=== PATIENT | female | born 1990 | race Caucasian/White ===

== ENCOUNTER 2017-06-18 21:53 | Inpatient (IN) | payer BC, OTHER ==
[~2017-06-18] VITALS: Ht 157.5 cm; Wt 63.5 kg
[2017-06-19] VITALS (8 sets, daily range): BP systolic 88–118; BP diastolic 45–81
--- NOTE | 2017-06-19 01:30 | NUR ---
Pre-Admission Assessment Patient is a 27 year old female seen in intake. She is alert and oriented x4. Patient is noted to be unkempt, dirty finger nails, and multiple scattered abscesses to both right and left forearms. She is also noted with increased anxiety, restless, and hyperverbal. Discussed with patient admission policies of the unit and patient is able to verbalize understanding. Patient is coherent and able to respond to questions appropriately. Patient reported that she is arriving from [place] where she was living with a friend but also states Im not allowed to go back there until Im 90 days clean. Patient is ambulatory with steady gait. Vital signs taken and noted as follows: 118/81, 92, 99%, 18, 98.0, 0/10. Home medications policies reviewed with patient and she is able to verbalize understanding in regards to narcotic medication disposal. Patient was noted with an excessive amount of needles. All needles were disposed off in sharps container. All needs attended to promptly. Will continue admission assessment on unit.
[2017-06-19] MEDS ORDERED: DICYCLOMINE HCL 20 MG TABLET PO PRN (02:30)
[2017-06-19] MEDS ORDERED: LORAZEPAM 2 MG/1 ML VIAL IM PRN (02:30)
[2017-06-19] MEDS ORDERED: BUPRENORPHINE HCL 2 MG TAB.SUBL SL PRN (02:30)
[2017-06-19] MEDS ORDERED: MAGNESIUM HYDROXIDE 30 ML LIQUID UDC PO PRN (02:30)
[2017-06-19] MEDS ORDERED: ONDANSETRON 4 MG/2 ML VIAL IM PRN (02:30)
[2017-06-19] MEDS ORDERED: MAG HYDROX/AL HYDROX/SIMETH 30 ML LIQUID UDC PO PRN (02:30)
[2017-06-19] MEDS ORDERED: diphenhydrAMINE 50 MG CAPSULE PO PRN (02:30)
[2017-06-19] MEDS ORDERED: PROMETHAZINE HCL 25 MG TABLET PO PRN (02:30)
[2017-06-19] MEDS ORDERED: CLONIDINE HCL 0.1 MG TABLET PO PRN (02:30)
[2017-06-19] MEDS ORDERED: ACETAMINOPHEN 325 MG TABLET PO PRN (02:30)
[2017-06-19] MEDS ORDERED: MIRALAX 17 GM POWD.PACK PO PRN (02:30)
[2017-06-19] MEDS ORDERED: IBUPROFEN 600 MG TABLET PO PRN (02:30)
[2017-06-19] MEDS ORDERED: LOPERAMIDE HCL 2 MG CAPSULE PO PRN ×2 (02:30)
[2017-06-19] MEDS ORDERED: HYDROXYZINE PAMOATE 25 MG CAPSULE PO PRN (02:30)
[2017-06-19] MEDS ORDERED: TRAZ-144 PO (02:40)
[2017-06-19] MEDS ORDERED: SERT50TA PO (02:40)
[2017-06-19 02:43] LABS: *URINE HCG, QUAL NEGATIVE (NEGATIVE)
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
[2017-06-19 02:53] LABS: *AMPHETAMINE, URINE NEGATIVE (NEGATIVE); *BARBITURATE, URINE NEGATIVE (NEGATIVE); *CANNABINOID, URINE NEGATIVE (NEGATIVE); *COCCAINE, URINE NEGATIVE (NEGATIVE); *OPIATE, URINE POSITIVE (NEGATIVE); *PHENCYCLIDINE SCREEN,URINE NEGATIVE (NEGATIVE)
[2017-06-19] MEDS: LORAZEPAM 1 MG TABLET PO PRN ×2 (03:26→18:39)
--- NOTE | 2017-06-19 03:30 | NUR ---
PRN Medication Administration Patient is noted with increased anxiety, restlessness, irritability, tremulous, and verbalizing light sensitivity. CIWA noted to be 16. PRN Ativan 2mg administered. Will continue to monitor.
--- NOTE | 2017-06-19 04:30 | NUR ---
PRN Medication Reassessment Patient is noted in bed awake and watching TV. patient states "the medication helped me to relax." CIWA noted to be 7. PRN Ativan noted to be effective. Will continue to monitor.
--- NOTE | 2017-06-19 07:04 | NUR ---
End of Shift Patient is in bed sleeping. Breathing even and non labored. Patient is currently not on a taper but has placed on PRN medications for increased signs and symptoms of withdrawal. She received PRN Ativan 2mg for increased anxiety, irritability, restlessness, tremulous and verbalizing increased light sensitivity. PRN Ativan noted to be effective. Last noted CIWA 7 and COWS 6. Patient noted to sleep a total of 2 hours. All needs attended to promptly. Will endorse to continue plan of care as ordered.
[2017-06-19] MEDS ORDERED: FOLIC ACID 1 MG TABLET PO SCH (09:00)
[2017-06-19] MEDS ORDERED: MULTIVITAMINS,THERAPEUTIC TABLET PO SCH (09:00)
--- NOTE | 2017-06-19 09:00 | NUR ---
START OF SHIFT Received report from night warehouse selector nurse. Patient is 27 year old female admitted for medically supervised withdrawal from heroin and valium. Patient is full code with NKA. Per night warehouse selector report, PRN Ativan was given for CIWA 16, last CIWA: 7 and COWS: 6. On assessment this AM: CIWA 5 and COWS 3. Denies SOB, chest pain. Patients vitals signs WNL. Patient noted with anxiety, tremors, body aches and sweating. Compliant with AM meds. No PRN given. All needs met at this time. Call lights within reach and bed at low setting. Will continue to monitor patient.
[2017-06-19] MEDS ORDERED: NICOTINE 14 MG/24HR PATCH TD PRN (11:00)
[2017-06-19] MEDS ORDERED: NICOTINE POLACRILEX 4 MG GUM-PK OF TEN BC PRN (11:00)
--- NOTE | 2017-06-19 11:00 | NUR ---
Labs not done this MD RAJAT notified. Patient agreeable to have another photographic laboratory technician try again. Patient has abscess on bilateral forearms, swelling and mild redness noted on both arms, dark discoloration noted on R forearm abscess, photos in chart, wound consult placed by charge nurse.
[2017-06-19 11:47] LABS: BASOPHILS % (AUTO) 0.7 % (0.0-2.0); EOSINOPHILS # (AUTO) 0.2 K/uL (0.0-0.7); EOSINOPHILS % (AUTO) 4.8 % (0.0-7.0); HEMOGLOBIN 14.2 g/dL (10.9-14.3); LYMPHOCYTES # (AUTO) 1.9 K/uL (20.0-40.0); LYMPHOCYTES % (AUTO) 43.4 % (20.5-51.5); MEAN CORPUSCULAR HEMOGLOBIN 27.4 uug (24.7-32.8); MEAN CORPUSCULAR HGB CONC 34 g/dL (32.3-35.6); MEAN CORPUSCULAR VOLUME 80.7 fL (75.5-95.3); MONOCYTES # (AUTO) 0.4 K/uL (2.0-10.0); MONOCYTES % (AUTO) 9.6 % (0.0-11.0); NEUTROPHILS # (AUTO) 1.8 K/uL (1.8-8.9); NEUTROPHILS % (AUTO) 41.5 % (38.5-71.5); PLATELET COUNT (AUTO) 186 K/uL (179-408); WHITE BLOOD COUNT (AUTO) 4.3 K/uL (3.8-11.8)
[2017-06-19 11:58] LABS: ETHANOL < 3 MG/DL (0-0)
[2017-06-19 12:02] LABS: ALANINE AMINOTRANSFERASE 64 U/L (14-59); ALKALINE PHOSPHATASE 100 U/L (50-136); AMYLASE 60 U/L (25-115); ASPARTATE AMINOTRANSFERASE 39 U/L (15-37); BILIRUBIN,TOTAL 0.8 mg/dL (0.2-1.0); CARBON DIOXIDE 30 mmol/L (21-32); CHLORIDE 99 mmol/L (98-107); CREATININE 0.9 mg/dL (0.6-1.3); GLUCOSE 99 mg/dL (74-106); LIPASE 290 U/L (73-393); MAGNESIUM 1.8 mg/dL (1.8-2.4); TOTAL PROTEIN, SERUM 8.1 g/dL (6.4-8.2); UREA NITROGEN, BLOOD 12 mg/dL (7-18)
[2017-06-19] MEDS: BUPRENORPHINE HCL 2 MG TAB.SUBL SL SCH ×2 (15:42→20:18)
[2017-06-19] MEDS: NEOMY/BACITRAC/POLYMI OINT 28.35 GM TUBE TOP SCH (17:56)
--- NOTE | 2017-06-19 18:39 | NUR ---
PRN ATIVAN Patient's CIWA is 9, complains of increaisng anxiety and agitation, body aches, tremors, nausea, sweating. PRN Ativan 1mg po given. Will continue to monitor patient.
--- NOTE | 2017-06-19 19:00 | NUR ---
307- Start of Shift Patient Received. Patient is noted in bed sleeping. Breathing even and non labored. Patient was started on a modified 5 day Subutex taper. Patient was noted to be isolative to room due to withdrawal symptoms. PRN Ativan 1mg administered for elevated CIWA of 9 with endorsement to reassess PRN Ativan. Patient is set to start Doxycycline 100mg with 2100 medications. New order obtained for Wound Consult for bilateral upper extremities. Last noted CIWA 9 and COWS 10. All needs attended to promptly. Will continue to monitor.
--- NOTE | 2017-06-19 19:17 | NUR ---
END OF SHIFT Patient is 27 year old female admitted for medically supervised withdrawal from heroin and valium. Started Subutex taper this shift. Most recent COWS: 10 and CIWA: 9, reports anxiety, body aches, chills, stuffy nose, tremors. PRN Ativan given for CIWA 9. Patient has bilateral forearm abscess, wound consult placed by charge nurse, antibiotic ointment applied as ordered. Compliant with routine meds during this shift. Patient tolerating meals. supervisor dry pasterestaurant shift leader will continue to monitor patient.
[2017-06-19] MEDS: DOXYCYCLINE HYCLATE 100 MG TABLET PO SCH (20:18)
[2017-06-19] MEDS: TRAZODONE 50 MG TABLET PO SCH (20:18)
[2017-06-19] MEDS: METHOCARBAMOL 750 MG TABLET PO PRN (20:18)
--- NOTE | 2017-06-19 20:20 | NUR ---
PRN Medication Administration Patient is noted verbalizing increased body aches with facial grimacing noted. PRN Robaxin administered with routine medications. Will continue to monitor.
--- NOTE | 2017-06-19 21:20 | NUR ---
PRN Medication Reassessment Patient is noted in bed sleeping. Breathing even and non labored. No signs of restlessness or discomfort noted. PRN Robaxin noted to be effective. Will continue to monitor.
[2017-06-20] VITALS: BP 98/58
[2017-06-20 04:00] VITALS: BP 104/74
[2017-06-20] MEDS: LORAZEPAM 1 MG TABLET PO PRN ×2 (04:02→07:46)
[2017-06-20] MEDS: METHOCARBAMOL 750 MG TABLET PO PRN ×2 (04:18→13:27)
--- NOTE | 2017-06-20 04:20 | NUR ---
PRN Medication Administration Patient is noted awake and verbalizing increased anxiety, restlessness, increased body aches, and chills. . PRN Ativan 1mg and PRN Robaxin administered. Will continue to monitor.
--- NOTE | 2017-06-20 05:20 | NUR ---
PRN Medication Reassessment Patient is noted in bed sleeping. Breathing even and non labored. No signs of restlessness or discomfort noted. PRN Ativan 1mg and PRN Robaxin noted to be effective. Will continue to monitor.
--- NOTE | 2017-06-20 07:12 | NUR ---
End of Shift Patient is in bed sleeping. Breathing even and non labored. Patient continues on a modified 5 day Subutex taper. She is noted to be isolative to room due to a withdrawal symptoms. Patient received PRN Robaxin x2 and PRN Ativan 1mg with medications noted to be effective. Fluids and snacks encouraged and tolerated well. Last noted COWS 14 and CIWA 9. Patient noted to sleep a total of 11 hours. All needs attended to promptly. Will endorse to continue plan of care as ordered.
[2017-06-20] MEDS: ONDANSETRON ODT 4 MG TAB.RAPDIS SL PRN (07:44)
--- NOTE | 2017-06-20 07:50 | NUR ---
START OF SHIFT: RECEIVED PT A/O X 4. SHE IS FIDGETY AND PACING IN ROOM. HER EYES ARE WATERING AND PUPILS DILATED. SHE STATES SHE STATES"I FEEL LIKE IM DYING" ASKED PT TO BE MORE DESCRIPTIVE. SHE REPORTS NAUSEA, SEVERE ANXIETY AND AGITATION, RUNNY NOSE, BODY ACHES,SWEATS,CHILLS AND IRRITABILITY. PRN ZOFRAN ODT ADMINISTERED AND ATIVAN 2 MG PO PRN FOR CIWA 16. COWS 16. WILL ADMINISTER SCHEDULED SUBUTEX DURING AM MED PASS. WILL CONTINUE TO MONITOR AND MANAGE S/S OF W/D.
[2017-06-20 08:00] VITALS: BP 90/60
--- NOTE | 2017-06-20 08:20 | NUR ---
ATIVAN PRN EFFECTIVE CIWA IS NOW 5 AND PT STATES SHE IS READY FOR SLEEP.
[2017-06-20] MEDS ORDERED: TUBERCULIN,PURIF.PROT.DERIV. 5 TU/0.1 ML TEST ID ONE (09:00)
[2017-06-20] MEDS: DOXYCYCLINE HYCLATE 100 MG TABLET PO SCH ×2 (09:27→21:23)
[2017-06-20] MEDS: BUPRENORPHINE HCL 2 MG TAB.SUBL SL SCH ×3 (09:28→21:23)
[2017-06-20] MEDS: NEOMY/BACITRAC/POLYMI OINT 28.35 GM TUBE TOP SCH ×2 (09:30→16:11)
[2017-06-20 12:00] VITALS: BP 105/65
[2017-06-20] MEDS ORDERED: KETOROLAC TROMETHAMINE 30 MG INJ IM PRN (13:15)
[2017-06-20 13:16] LABS: HEPATITIS B SURFACE AG Negative (Negative)
[2017-06-20] MEDS: CLONIDINE HCL 0.1 MG TABLET PO SCH (13:28)
--- NOTE | 2017-06-20 13:35 | NUR ---
PRN MOTRIN,CLONIDINE AND ROBAXIN GIVEN FOR REPORTED MUSCLE ACHES,CHILLS AND SWEATS. WILL MONITOR EFFECTIVENESS OF PRN MEDS.
--- NOTE | 2017-06-20 14:35 | NUR ---
PRN MEDS EFFECTIVE AEB PT IS ASLEEP WITH RESPIRATIONS EVEN AND UNLABORED. BED LOCKED AND LOW. CALL ARIZA IN REACH. WILL CONTINUE TO MONITOR AND PROVIDE SAFE AND SUPPORTIVE ENVIRONMENT.
[2017-06-20 16:00] VITALS: BP_SYST 130; BP_SYST 99; BP_DIAS 60; BP_DIAS 76
--- NOTE | 2017-06-20 18:46 | NUR ---
END OF SHIFT: PT CONTINUES ON SUBUTEX TAPER TO MANAGE S/S OF W/D WHICH INCLUDE SWEATS,CHILLS,ANXIETY,BODY ACHES, RESTLESSNESS AND IRRITABILITY. LAST COWS 10 CIWA 7. PRN ATIVAN 2 MG PO PRN GIVEN THIS AM FOR CIWA 16 AND EFFECTIVE. PRN CLONIDINE ,MOTRIN AND ROBAXIN GIVEN THIS AFTERNOON FOR BODY ACHES,SWEATS AND CHILLS WHICH WAS EFFECTIVE. SHE STAYED IN BED AND RESTED FOR MOST OF SHIFT. PPD REFUSED. SHE WAS COMPLIANT WITH INCREASED FLUIDS. [facility].
--- NOTE | 2017-06-20 19:00 | NUR ---
Start of Shift Patient Received. Patient is in bed sleeping but easily aroused to verbal stimuli. Breathing even and non labored. Per endorsement, patient continues on modified Subutex taper with PRN Ativan available. Patient is noted to be emotional and isolative to room due to withdrawal symptoms. PRN Ativan 2mg, Robaxin, Motrin, and Clonidine given and all noted to be effective. Last noted COWS 10 and CIWA 7. All needs attended to promptly. Will continue plan of care as ordered.
[2017-06-20 20:20] VITALS: BP 101/62
[2017-06-20] MEDS: GABAPENTIN 300 MG CAPSULE PO SCH (21:23)
[2017-06-20] MEDS: BACLOFEN 10 MG TABLET PO SCH (21:23)
[2017-06-20] MEDS: TRAZODONE 50 MG TABLET PO SCH (21:23)
[2017-06-21 00:11] VITALS: BP 99/53
[2017-06-21 04:47] VITALS: BP 97/56
--- NOTE | 2017-06-21 07:06 | NUR ---
End of Shift Patient is in bed sleeping. Breathing even and non labored. Patient continues on a modified Subutex taper. Patient was noted to be emotional but allowed patient to verbalize feelings and offered support. She was noted to participate in group and social activities prior to bed. No PRN medications administered. Last noted CIWA 10 and COWS 9. Patient is noted to sleep a total of 7 hours. All needs attended to promptly. Will endorse to continue plan of care as ordered.
--- NOTE | 2017-06-21 07:24 | NUR ---
Start of Shift Notes: Received patient in her room. Arousable. Appears drowsy upon waking. Alert and oriented x 4. No AV hallucinations noted. Denies S/I or H/I. Patient appears disheveled. Room is unkept. Messy with dirty linen on the floor. Patient is a 27 year old female admitted for opiate and BZO withdrawal. Placed on a 5-day Subutex and PRN Ativan to manage her withdrawal symptoms. Educated patient on her current plan of care for the day and her medication regimen. Encouraged oral fluid intake and encouraged group participation to learn new skills to prevent relapse. Encouraged maintenance of personal hygiene and space. All needs met and attended. Will continue to monitor.
[2017-06-21 08:00] VITALS: BP 112/87
[2017-06-21] MEDS ORDERED: BUPRENORPHINE HCL 2 MG TAB.SUBL SL SCH (09:00)
[2017-06-21] MEDS: LORAZEPAM 1 MG TABLET PO PRN (09:11)
[2017-06-21] MEDS: CLONIDINE HCL 0.1 MG TABLET PO SCH ×3 (09:11→21:00)
[2017-06-21] MEDS: BACLOFEN 10 MG TABLET PO SCH ×3 (09:11→21:30)
[2017-06-21] MEDS: GABAPENTIN 300 MG CAPSULE PO SCH ×3 (09:11→21:29)
[2017-06-21] MEDS: DOXYCYCLINE HYCLATE 100 MG TABLET PO SCH ×2 (09:11→21:30)
--- NOTE | 2017-06-21 09:11 | NUR ---
Ativan 1 mg PO given: CIWA 9, appears anxious, agitated, tearful and stated "I'm having a lot of anxiety and cravings." Non-pharmacological interventions provided but ineffective. Medicated patient with Ativan 1 mg PO per CIWA score of 9. Will monitor for effectiveness.
--- NOTE | 2017-06-21 09:11 | NUR ---
Toradol 30 mg IM given: Patient complained of 8/10 generalized pain. Non-pharmacological interventions provided but ineffective. Medicated patient with Toradol 30 mg IM as ordered. Will monitor for effectiveness.
[2017-06-21] MEDS: NEOMY/BACITRAC/POLYMI OINT 28.35 GM TUBE TOP SCH ×2 (09:12→17:00)
--- NOTE | 2017-06-21 09:41 | NUR ---
Re-assessment: Toradol Per patient, PRN Toradol was effective in reducing myalgia. PL is now 04/19.
--- NOTE | 2017-06-21 10:11 | NUR ---
Re-assessment: Ativan CIWA 4, patient appears less anxious and less agitated. Ativan 1 mg PO was effective.
[2017-06-21 12:00] VITALS: BP 92/47
[2017-06-21] MEDS: BUPRENORPHINE HCL 2 MG TAB.SUBL SL SCH ×2 (14:05→21:29)
[2017-06-21 16:00] VITALS: BP 97/63
--- NOTE | 2017-06-21 17:49 | NUR ---
Triple ATB ointment not administered: Patient refused triple ATB ointment due at this time. Patient states that she does not need it at this time. Benefits and risk explained. Offered x3 but patient still refused. Will continue to monitor.
--- NOTE | 2017-06-21 19:08 | NUR ---
End of Shift Notes: Patient continues to be on 5-day Subutex and PRN Ativan as ordered to manage withdrawal related to opiates and BZOs. Patient is tolerating current taper well. VS monitored closely. No significant abnormalities noted. Withdrawal symptoms were closely monitored. Initial COWS 15, CIWA 9. Patient presented with anxiety/agitation, chills, hot flashes, sweats, fine tremors, myalgia and restlessness. Medicated patient with Ativan 1 mg PO for CIWA 9 at 0911 and Toradol 30 mg IM for 8/10 pain with help. Requires encouragement to participate in group and activities due to social isolation. Patient verbalized that Subutex has been effective in reducing her withdrawal symptoms. Last COWS 7/CIWA 2. Appetite fair. All needs met and attended. Will continue to monitor closely.
--- NOTE | 2017-06-21 19:30 | NUR ---
START OF SHIFT NOTE : Patient is 27 year old female admitted for medically supervised withdrawal from heroin and valium. Started Subutex taper on 06/19/2017. Last COWS=7 and CIWA=2 at 16:00. PRN Toradol, Ativan given as ordered during a day shift. Patient has bilateral forearm abscess, treatment as ordered. Pt. is in the bed, sad facial expression, labile mood because of private situation with her girl-friend. Pt. complains of bilateral tremor, mild muscle spasm, insomnia, increased level of anxiety.Encouraged to attend group and participate in activities due to self isolation. Encouraged healthy diet while in detox. Educated patient regarding the importance of compliance to treatment and medication regime, patient verbalized understanding.Safety measures in place : bed on lowest position with side rails x2 up for safety, all light within reach. Will continue to monitor closely and offer help.
[2017-06-21 20:00] VITALS: BP 90/55
--- NOTE | 2017-06-21 21:01 | NUR ---
NON ADMINISTERED MEDICATION CATAPRES (BP=[id number])
[2017-06-21] MEDS: TRAZODONE 50 MG TABLET PO SCH (21:30)
--- NOTE | 2017-06-22 06:37 | NUR ---
END OF SHIFT NOTE : Patient is 27 year old female admitted for medically supervised withdrawal from heroin and valium. Started Subutex taper on 06/19/2017. Last COWS=7 and CIWA=2 at 16:00. PRN Toradol, No PRNs given during a day shift. Pt. was on 4 day Subutex taper, tolerated well. Last COWS=7, CIWA=8 recorded at 04:00. Instructed patient to maintain adequate fluid and nutritional intake. Education provided in safety and hygiene care. Patient verbalized understanding. Intake= 500ml, voided x1, slept=9 1/2 hours. Pt. will be D/C today in A.M. Safety measures in place : bed on lowest position with side rails x2 up for safety, all light within reach. Will continue to monitor closely and offer help.
--- NOTE | 2017-06-22 07:35 | NUR ---
Start of shift note; Received report from night nurse. Patient is a 27 year old female admitted on 06/19/17 for Opiate/ Benzodiazepine. Patient was placed on a 5 day Subutex taper. Patient appears agitated, complaining of muscle aches, diaphoresis, stomach cramps, depression. Educated patient regarding the importance of compliance to treatment and medication regime. All safety measures secured. Will continue to monitor patient.
[2017-06-22 08:00] VITALS: BP 90/51
[2017-06-22] MEDS: BACLOFEN 10 MG TABLET PO SCH (08:08)
[2017-06-22] MEDS: DOXYCYCLINE HYCLATE 100 MG TABLET PO SCH ×2 (08:08→21:32)
[2017-06-22] MEDS: BUPRENORPHINE HCL 2 MG TAB.SUBL SL SCH ×3 (08:08→21:32)
[2017-06-22] MEDS: GABAPENTIN 300 MG CAPSULE PO SCH ×3 (08:08→21:32)
[2017-06-22] MEDS: NEOMY/BACITRAC/POLYMI OINT 28.35 GM TUBE TOP SCH ×2 (08:09→17:00)
[2017-06-22] MEDS: CLONIDINE HCL 0.1 MG TABLET PO SCH ×3 (08:38→21:00)
[2017-06-22] MEDS: ONDANSETRON ODT 4 MG TAB.RAPDIS SL PRN (08:58)
--- NOTE | 2017-06-22 09:04 | NUR ---
PRN medication; Patient reported one episode of small emesis and nausea. PRN Zofran 4mg ODT given to patient to prevent further nausea and Vomiting. Will continue to monitor patient.
--- NOTE | 2017-06-22 10:04 | NUR ---
Re-assessment; Patient denies N/V at this time. PRN Zofran noted to be effective.
--- NOTE | 2017-06-22 10:42 | NUR ---
MD communication; Patient was seen and evaluated by MD. LAB results were discussed to patient by MD.
[2017-06-22] MEDS ORDERED: LORAZEPAM 1 MG TABLET PO PRN ×2 (11:45)
[2017-06-22 12:00] VITALS: BP 103/60
[2017-06-22] MEDS: BACLOFEN 20 MG TABLET PO SCH ×2 (14:07→21:32)
[2017-06-22 16:00] VITALS: BP 95/56
--- NOTE | 2017-06-22 18:20 | NUR ---
End of shift note; Patient is AOx4. Patient remained compliant with treatment plan and medication regime. Medications were effective in reducing withdrawal symptoms. Patient presented with anxiety, complaining of stomach cramps, agitation, hot and cold sweats. Patient participated in group therapy and activities. All safety measures secured. Met all needs.
--- NOTE | 2017-06-22 19:30 | NUR ---
START OF SHIFT NOTE : Patient is 27 year old female admitted for medically supervised withdrawal from heroin and valium. Started Subutex taper on 06/19/2017. Last COWS=7 and CIWA=5 at 16:00. PRN ZOFRAN given during a day shift. Patient has bilateral forearm abscess, treatment as ordered. Pt. is in the bed, sad facial expression, labile mood because of private situation with her girl-friend. Pt. complains of anhedonia, mild muscle spasm, insomnia, increased level of anxiety. Encouraged to attend group and participate in activities. Educated patient regarding the importance of compliance to treatment and medication regime, patient verbalized understanding. Education provided in safety and hygiene care. Patient verbalized understanding. Safety measures in place : bed on lowest position with side rails x2 up for safety, all light within reach. Will continue to monitor closely and offer help.
[2017-06-22 20:00] VITALS: BP 101/55
--- NOTE | 2017-06-22 21:00 | NUR ---
NON ADMINISTERED MEDICATION CATAPRES (DD=[id number])
[2017-06-22] MEDS: TRAZODONE 50 MG TABLET PO SCH (21:32)
--- NOTE | 2017-06-23 06:49 | NUR ---
END OF SHIFT NOTE : Patient is 27 year old female admitted for medically supervised withdrawal from heroin and valium. Started Subutex taper on 06/19/2017. PRN Zofran given during a day shift. Pt. is on 5 day Subutex taper, tolerated well. Last COWS=7, CIWA=5 recorded at 04:00. Instructed patient to maintain adequate fluid and nutritional intake. Education provided in safety and hygiene care. Patient verbalized understanding. Intake= 100ml, voided x1, slept=10 hours. Safety measures in place : bed on lowest position with side rails x2 up for safety, all light within reach. Will continue to monitor closely and offer help.
--- NOTE | 2017-06-23 07:43 | NUR ---
Start of shift note; Received report from night nurse. Patient is a 27 year old female admitted on 06/19/17 for Opiate/ Benzodiazepine. Patient was placed on a 5 day Subutex taper. Patient appears agitated, complaining of muscle aches, diaphoresis, stomach cramps, depression. Educated patient regarding the importance of compliance to treatment and medication regime. Patient slept for 10 hours per endorsement. All safety measures secured. Will continue to monitor patient.
[2017-06-23 08:00] VITALS: BP 98/56
[2017-06-23] MEDS: GABAPENTIN 300 MG CAPSULE PO SCH ×3 (08:28→21:00)
[2017-06-23] MEDS: DOXYCYCLINE HYCLATE 100 MG TABLET PO SCH ×2 (08:28→20:59)
[2017-06-23] MEDS: BACLOFEN 20 MG TABLET PO SCH ×3 (08:28→20:59)
[2017-06-23] MEDS: BUPRENORPHINE HCL 2 MG TAB.SUBL SL SCH ×2 (08:28→20:59)
[2017-06-23] MEDS: NEOMY/BACITRAC/POLYMI OINT 28.35 GM TUBE TOP SCH ×2 (08:30→16:01)
[2017-06-23] MEDS: CLONIDINE HCL 0.1 MG TABLET PO SCH ×3 (08:42→21:00)
[2017-06-23 12:00] VITALS: BP 131/86
[2017-06-23] MEDS ORDERED: CLON0.1T14 PO (13:36)
[2017-06-23] MEDS ORDERED: IBUP-1955 PO (13:36)
[2017-06-23] MEDS ORDERED: DICY20TA28 PO (13:36)
[2017-06-23] MEDS ORDERED: GABA-534 PO ×2 (13:36)
[2017-06-23] MEDS ORDERED: METH-406 PO (13:36)
[2017-06-23 16:00] VITALS: BP 95/58
--- NOTE | 2017-06-23 19:05 | NUR ---
End of shift note; Patient is AOx4. Patient remained compliant with treatment plan and medication regime. Medications were effective in reducing withdrawal symptoms. Patient presented with anxiety, complaining of stomach cramps, agitation, hot and cold sweats. Patient participated in group therapy and activities. Patient's last COWS score is 8 and last CIWA score is 5. All safety measures secured. Met all needs.
--- NOTE | 2017-06-23 19:30 | NUR ---
START OF SHIFT NOTE : Patient is 27 year old female admitted for medically supervised withdrawal from heroin and valium. Started Subutex taper on 06/19/2017. Last COWS=6 and CIWA=5 at 16:00.No PRNs given during a day shift. Patient has bilateral forearm abscess, treatment as ordered. Pt. is in the activity room, socializing with other clients. She states she feels better today, has a good appetite, participated in meetings and talk to other clients. Pt. complains of mild muscle spasm, insomnia, increased level of anxiety. Education provided in safety and hygiene care. Patient verbalized understanding. Encouraged to attend group and participate in activities due to self isolation. Encouraged healthy diet while in detox. Safety measures in place : bed on lowest position with side rails x2 up for safety, all light within reach. Will continue to monitor closely and offer help.
[2017-06-23 20:00] VITALS: BP 104/64
[2017-06-23] MEDS: TRAZODONE 50 MG TABLET PO SCH (20:59)
--- NOTE | 2017-06-23 21:00 | NUR ---
NON ADMINISTERED MEDICATION CATAPRES (JP=[id number]) Pt. refused evening dose of Neurontin.
--- NOTE | 2017-06-24 06:51 | NUR ---
END OF SHIFT NOTE : Patient is 27 year old female admitted for medically supervised withdrawal from heroin and valium. Started Subutex taper on 06/19/2017. PRN Zofran given during a day shift. Pt. is on 5 day Subutex taper, tolerated well. Last COWS=6, CIWA=5 recorded at 04:00. Encouraged patient to participate in group therapies and verbalize feelings. Intake= 750ml, voided x2, slept=8 1/2 hours. Safety measures in place : bed on lowest position with side rails x2 up for safety, all light within reach. Will continue to monitor closely and offer help.
--- NOTE | 2017-06-24 07:42 | NUR ---
Start of shift note; Received report from night nurse. Patient is a 27 year old female admitted on 06/19/17 for Opiate/ Benzodiazepine. Patient was placed on a 5 day Subutex taper. Patient appears agitated, complaining of muscle aches, diaphoresis, stomach cramps, depression. Educated patient regarding the importance of compliance to treatment and medication regime. Patient to be evaluated for discharge for tomorrow. All safety measures secured. Will continue to monitor patient.
[2017-06-24 08:00] VITALS: BP 100/57
[2017-06-24] MEDS ORDERED: BUPRENORPHINE HCL 2 MG TAB.SUBL SL SCH (09:00)
[2017-06-24] MEDS: CLONIDINE HCL 0.1 MG TABLET PO SCH ×3 (09:00→21:00)
[2017-06-24] MEDS: GABAPENTIN 300 MG CAPSULE PO SCH ×3 (09:00→21:00)
[2017-06-24] MEDS: BACLOFEN 20 MG TABLET PO SCH ×3 (09:05→21:00)
[2017-06-24] MEDS: DOXYCYCLINE HYCLATE 100 MG TABLET PO SCH (09:05)
[2017-06-24] MEDS: NEOMY/BACITRAC/POLYMI OINT 28.35 GM TUBE TOP SCH ×2 (09:06→17:00)
[2017-06-24] MEDS: ONDANSETRON ODT 4 MG TAB.RAPDIS SL PRN (09:37)
--- NOTE | 2017-06-24 09:37 | NUR ---
PRN medication; Patient is complaining of nausea and 1 episode of vomiting> PRN Zofran 4mg ODT given. Will continue to monitor for effectiveness of medication.
--- NOTE | 2017-06-24 10:37 | NUR ---
RE-assessment; Patient denies N/V at this time. PRN medication noted to be effective.
[2017-06-24 12:00] VITALS: BP 95/61
[2017-06-24 16:00] VITALS: BP 102/65
--- NOTE | 2017-06-24 18:53 | NUR ---
End of shift note; Patient is AOx4. Patient remained compliant with treatment plan and medication regime. Medications were effective in reducing withdrawal symptoms. Patient presented with anxiety, complaining of stomach cramps, agitation, hot and cold sweats. Patient participated in group therapy and activities. Patient's last COWS score is 5 and last CIWA score is 7. Patient is medically cleared for discharge tomorrow. All safety measures secured. Met all needs.
--- NOTE | 2017-06-24 19:00 | NUR ---
Start of Shift Notes: Report received from day shift nurse. Per day shift nurse last COWS was 5 and last CIWA was 7 at 1600. Upon start of shift pt was participating in group activity. Pt appears anxious and worried about her discharge tomorrow. Pt states "I'm ready but I don't know what's next." During assessment, pt is AOx3. Lung sounds clear bilaterally. Radial pulse is regular and non-bounding. No c/o nausea and denies pain at this time. Skin is warm and dry. Pt has completed Subutex taper to manage withdrawal symptoms. Bed in lowest position. Side rails up x2. Call light functioning and within reach. All needs attended and met. Will continue to monitor.
[2017-06-24 20:00] VITALS: BP 108/66
[2017-06-24] MEDS: TRAZODONE 50 MG TABLET PO SCH ×2 (21:00→22:26)
--- NOTE | 2017-06-25 07:21 | NUR ---
End of Shift Notes: Pt currently in bed with eyes closed. Pt slept for 7 hours. No PRN Medications given during shift. Pts last COWS was 4 and CIWA was 4 at 1999. Pt has completed Subutex taper to manage withdrawal symptoms. Pt is scheduled to be discharged today. During shift pt was anxious about being discharged Allowed pt to verbalize feelings. Bed in lowest position. Side rails up x2. Call light functioning and within reach. All needs attended and met. Will endorse to day shift nurse.
[2017-06-25 08:00] VITALS: BP 100/60
--- NOTE | 2017-06-25 08:05 | NUR ---
START OF SHIFT: RECEIVED PT A/O X 4. SHE PRESENTS WITH ANXIOUS MOOD AND CONGRUENT AFFECT.SUBUTEX COMPLETED YESTERDAY. COWS 4 SHE STATES SHE REPORTS ANXIETY ABOUT LEAVING AND EXPRESSED FEELING AFRAID OF RELAPSING DESPITE GOING TO TREATMENT BECAUSE OF HER CURRENT FRIENDSHIPS THAT SHE USED WITH. ENCOURAGED HER TO DISCUSS WITH COUNSELOR WELL AND ENCOURAGED OPEN MINDEDNESS ABOUT DEVELOPING NEW SOBER FRIENDSHIPS.WILL CONTINUE WITH DISCHARGE PROCESS.
[2017-06-25] MEDS: GABAPENTIN 300 MG CAPSULE PO SCH (08:14)
[2017-06-25] MEDS: BACLOFEN 20 MG TABLET PO SCH (08:14)
[2017-06-25] MEDS: NEOMY/BACITRAC/POLYMI OINT 28.35 GM TUBE TOP SCH (08:15)
[2017-06-25] MEDS: CLONIDINE HCL 0.1 MG TABLET PO SCH (08:19)
--- NOTE | 2017-06-25 10:08 | NUR ---
DISCHARGE: PT IS A/O X 4. SHE DENIES S/I AND H/I. SHE STATES HE FEELS ENTHUSIASTIC AND NERVOUS TOWARD RECOVERY. BELONGINGS RETURNED. EDUCATED PT ON DISCHARGE MEDS AND INSTRUCTIONS. PT EXPRESSED VERBAL UNDERSTANDING OF EDUCATION . LICENSED PSYCHIATRIC TECHNICIAN ESCORTED PT TO [facility] WHERE SHE WAS TRANSPORTED BY [facility] TO [facility] AT 0915.
== END 2017-06-25 09:15 | disposition other institution (70) | DRG 895 ==
LOC: SRC 06-19 00:37
PROVIDERS: ADMIT Internal Medicine; ATTEND Internal Medicine
PROC: HZ2ZZZZ Detoxification Services for Substance Abuse Treatment (ICD-10-PCS; principal; 2017-06-19)
PROC: HZ41ZZZ Group Counseling for Substance Abuse Treatment, Behavioral (ICD-10-PCS; 2017-06-21)
DX: F11.23 Opioid dependence with withdrawal (principal); A60.00 Herpesviral infection of urogenital system, unspecified; L02.414 Cutaneous abscess of left upper limb; L02.413 Cutaneous abscess of right upper limb; F41.9 Anxiety disorder, unspecified; F13.230 Sedative, hypnotic or anxiolytic dependence with withdrawal, uncomplicated; Z59.1 Inadequate housing; G89.4 Chronic pain syndrome; G47.00 Insomnia, unspecified; F32.9 Major depressive disorder, single episode, unspecified; S41.132S Puncture wound without foreign body of left upper arm, sequela; S41.131S Puncture wound without foreign body of right upper arm, sequela; X78.8XXS Intentional self-harm by other sharp object, sequela; B19.20 Unspecified viral hepatitis C without hepatic coma; F17.210 Nicotine dependence, cigarettes, uncomplicated
CPT/HCPCS: 36415; 70030-TC; 80307; 80346; 80361; 83690; 83735; 84443; 84703; 85025; 86592; 86705; 86803; 87340; 87806; G0480; J1885; Q0162

== ENCOUNTER 2017-07-23 19:52 | Inpatient (IN) | payer BC, OTHER ==
[~2017-07-23] VITALS: Ht 157.5 cm; Wt 62.1 kg
[~2017-07-23 19:52] MED LIST: CLON0.1T14 PO; DICY20TA28 PO; GABA-534 PO; IBUP-1955 PO; METH-406 PO; TRAZ-144 PO
[2017-07-24] MEDS ORDERED: ACETAMINOPHEN 325 MG TABLET PO PRN (01:30)
[2017-07-24] MEDS ORDERED: diphenhydrAMINE 50 MG CAPSULE PO PRN (01:30)
[2017-07-24] MEDS ORDERED: MAG HYDROX/AL HYDROX/SIMETH 30 ML LIQUID UDC PO PRN (01:30)
[2017-07-24] MEDS ORDERED: CLONIDINE HCL 0.1 MG TABLET PO PRN (01:30)
[2017-07-24] MEDS ORDERED: LORAZEPAM 2 MG/1 ML VIAL IM PRN (01:30)
[2017-07-24] MEDS ORDERED: LOPERAMIDE HCL 2 MG CAPSULE PO PRN ×2 (01:30)
[2017-07-24] MEDS ORDERED: MIRALAX 17 GM POWD.PACK PO PRN (01:30)
[2017-07-24] MEDS ORDERED: METHOCARBAMOL 750 MG TABLET PO PRN (01:30)
[2017-07-24] MEDS ORDERED: LORAZEPAM 1 MG TABLET PO PRN ×2 (01:30)
[2017-07-24] MEDS ORDERED: MAGNESIUM HYDROXIDE 30 ML LIQUID UDC PO PRN (01:30)
[2017-07-24] MEDS ORDERED: DICYCLOMINE HCL 20 MG TABLET PO PRN (01:30)
[2017-07-24] MEDS ORDERED: ONDANSETRON 4 MG/2 ML VIAL IM PRN (01:30)
[2017-07-24] MEDS ORDERED: ONDANSETRON ODT 4 MG TAB.RAPDIS SL PRN (01:30)
[2017-07-24 01:36] LABS: *URINE HCG, QUAL NEGATIVE (NEGATIVE)
[2017-07-24 01:49] LABS: *AMPHETAMINE, URINE NEGATIVE (NEGATIVE); *BARBITURATE, URINE NEGATIVE (NEGATIVE); *CANNABINOID, URINE NEGATIVE (NEGATIVE); *COCCAINE, URINE NEGATIVE (NEGATIVE); *OPIATE, URINE POSITIVE (NEGATIVE); *PHENCYCLIDINE SCREEN,URINE NEGATIVE (NEGATIVE)
[2017-07-24] MEDS: IBUPROFEN 600 MG TABLET PO PRN ×2 (02:05→20:28)
[2017-07-24 04:00] VITALS: BP 84/46
[2017-07-24 09:04] VITALS: BP 95/60
[2017-07-24] MEDS: MULTIVITAMINS,THERAPEUTIC TABLET PO SCH (09:32)
[2017-07-24 13:20] VITALS: BP 90/55
[2017-07-24] MEDS ORDERED: CARB15DR74 OT (14:16)
[2017-07-24] MEDS ORDERED: BACI28.33 TP (14:16)
[2017-07-24] MEDS: GABAPENTIN 300 MG CAPSULE PO SCH ×2 (14:17→20:29)
[2017-07-24 17:26] VITALS: BP 96/58
[2017-07-24] MEDS: LORAZEPAM 1 MG TABLET PO PRN ×3 (18:47→23:17)
[2017-07-24 18:48] VITALS: BP 100/68
[2017-07-24 20:00] VITALS: BP 95/61
[2017-07-24] MEDS: BUPRENORPHINE HCL 2 MG TAB.SUBL SL PRN (20:29)
[2017-07-24] MEDS: TRAZODONE 50 MG TABLET PO SCH (20:29)
[2017-07-24 20:45] LABS: BASOPHILS % (AUTO) 0.8 % (0.0-2.0); EOSINOPHILS # (AUTO) 0.1 K/uL (0.0-0.7); EOSINOPHILS % (AUTO) 2.2 % (0.0-7.0); HEMATOCRIT 40.4 % (31.2-41.9); HEMOGLOBIN 13.9 g/dL (10.9-14.3); LYMPHOCYTES # (AUTO) 0.9 K/uL (20.0-40.0); LYMPHOCYTES % (AUTO) 23.5 % (20.5-51.5); MEAN CORPUSCULAR HEMOGLOBIN 27.7 uug (24.7-32.8); MEAN CORPUSCULAR HGB CONC 34 g/dL (32.3-35.6); MEAN CORPUSCULAR VOLUME 80.7 fL (75.5-95.3); MONOCYTES # (AUTO) 0.4 K/uL (2.0-10.0); MONOCYTES % (AUTO) 8.9 % (0.0-11.0); NEUTROPHILS # (AUTO) 2.6 K/uL (1.8-8.9); NEUTROPHILS % (AUTO) 64.6 % (38.5-71.5); PLATELET COUNT (AUTO) 211 K/uL (179-408); RED BLOOD CELL COUNT(AUTO) 5.01 MIL/uL (3.63-4.92)
[2017-07-24 20:54] LABS: ETHANOL < 3 MG/DL (0-0)
[2017-07-24 20:59] LABS: ALANINE AMINOTRANSFERASE 67 U/L (14-59); ALKALINE PHOSPHATASE 96 U/L (50-136); AMYLASE 60 U/L (25-115); ASPARTATE AMINOTRANSFERASE 45 U/L (15-37); BILIRUBIN,TOTAL 1.1 mg/dL (0.2-1.0); CARBON DIOXIDE 32 mmol/L (21-32); CHLORIDE 104 mmol/L (98-107); CREATININE 0.8 mg/dL (0.6-1.3); GLUCOSE 98 mg/dL (74-106); LIPASE 132 U/L (73-393); MAGNESIUM 1.9 mg/dL (1.8-2.4); POTASSIUM 4.2 mmol/L (3.5-5.1); UREA NITROGEN, BLOOD 12 mg/dL (7-18)
[2017-07-25 08:26] VITALS: BP 95/50
[2017-07-25] MEDS: GABAPENTIN 300 MG CAPSULE PO SCH ×3 (08:38→20:11)
[2017-07-25] MEDS: MULTIVITAMINS,THERAPEUTIC TABLET PO SCH (08:38)
[2017-07-25] MEDS: LORAZEPAM 1 MG TABLET PO PRN (08:38)
[2017-07-25] MEDS: BUPRENORPHINE HCL 2 MG TAB.SUBL SL PRN (08:39)
[2017-07-25] MEDS ORDERED: TUBERCULIN,PURIF.PROT.DERIV. 5 TU/0.1 ML TEST ID ONE (09:00)
[2017-07-25 12:15] VITALS: BP 97/58
[2017-07-25] MEDS: BUPRENORPHINE HCL 2 MG TAB.SUBL SL SCH ×2 (15:27→20:11)
[2017-07-25 16:38] VITALS: BP 93/45
[2017-07-25 20:00] VITALS: BP 108/65
[2017-07-25] MEDS: TRAZODONE 50 MG TABLET PO SCH (20:11)
[2017-07-26] MEDS: MULTIVITAMINS,THERAPEUTIC TABLET PO SCH (08:26)
[2017-07-26] MEDS: GABAPENTIN 300 MG CAPSULE PO SCH ×3 (08:26→21:20)
[2017-07-26] MEDS: LORAZEPAM 1 MG TABLET PO PRN (08:29)
[2017-07-26] MEDS: BUPRENORPHINE HCL 2 MG TAB.SUBL SL SCH ×3 (08:31→21:20)
[2017-07-26 08:34] VITALS: BP 103/62
[2017-07-26 12:00] VITALS: BP 85/45
[2017-07-26 13:09] LABS: HEPATITIS B SURFACE AG Negative (Negative)
[2017-07-26 16:55] VITALS: BP 105/59
[2017-07-26 20:00] VITALS: BP 105/64
[2017-07-26] MEDS: TRAZODONE 50 MG TABLET PO SCH (21:20)
[2017-07-27] VITALS: BP 98/56
[2017-07-27 08:00] VITALS: BP 98/68
[2017-07-27] MEDS: BUPRENORPHINE HCL 2 MG TAB.SUBL SL SCH ×2 (08:44→20:49)
[2017-07-27] MEDS: MULTIVITAMINS,THERAPEUTIC TABLET PO SCH (08:44)
[2017-07-27] MEDS: GABAPENTIN 300 MG CAPSULE PO SCH ×3 (08:44→20:49)
[2017-07-27 12:00] VITALS: BP 103/68
[2017-07-27] MEDS ORDERED: HYDROXYZINE PAMOATE 25 MG CAPSULE PO PRN (12:00)
[2017-07-27 16:00] VITALS: BP 100/63
[2017-07-27 20:00] VITALS: BP 93/63
[2017-07-27] MEDS: TRAZODONE 50 MG TABLET PO SCH (20:49)
[2017-07-27] MEDS: CLONIDINE HCL 0.1 MG TABLET PO SCH (20:50)
[2017-07-28 08:00] VITALS: BP 90/54
[2017-07-28] MEDS: GABAPENTIN 300 MG CAPSULE PO SCH ×3 (08:21→21:17)
[2017-07-28] MEDS: MULTIVITAMINS,THERAPEUTIC TABLET PO SCH (08:21)
[2017-07-28] MEDS: CLONIDINE HCL 0.1 MG TABLET PO SCH ×3 (08:21→21:00)
[2017-07-28] MEDS ORDERED: BUPRENORPHINE HCL 2 MG TAB.SUBL SL SCH (09:00)
[2017-07-28 12:00] VITALS: BP 89/49
[2017-07-28] MEDS ORDERED: METH-406 PO (12:58)
[2017-07-28] MEDS ORDERED: GABA-534 PO ×2 (12:58)
[2017-07-28] MEDS ORDERED: DICY20TA28 PO (12:58)
[2017-07-28] MEDS ORDERED: CLON0.1T14 PO (12:58)
[2017-07-28] MEDS ORDERED: IBUP-1955 PO (12:58)
[2017-07-28] MEDS ORDERED: HYDR-3895 PO (12:58)
[2017-07-28] MEDS ORDERED: DIPH50CA37 PO (12:58)
[2017-07-28] MEDS: DICYCLOMINE HCL 20 MG TABLET PO SCH ×2 (14:45→21:17)
[2017-07-28 16:30] VITALS: BP 89/48
[2017-07-28 20:00] VITALS: BP 90/51
[2017-07-28] MEDS: TRAZODONE 50 MG TABLET PO SCH (21:17)
[2017-07-29 08:30] VITALS: BP 90/64
[2017-07-29 08:44] VITALS: BP 108/63
[2017-07-29] MEDS: CLONIDINE HCL 0.1 MG TABLET PO SCH (08:44)
[2017-07-29] MEDS: DICYCLOMINE HCL 20 MG TABLET PO SCH (08:44)
[2017-07-29] MEDS: GABAPENTIN 300 MG CAPSULE PO SCH (08:44)
[2017-07-29] MEDS: MULTIVITAMINS,THERAPEUTIC TABLET PO SCH (08:44)
== END 2017-07-29 10:20 | DRG 895 ==
LOC: SRC 07-24 00:25
PROVIDERS: ADMIT Internal Medicine; ATTEND Internal Medicine
DX: F11.23 Opioid dependence with withdrawal (principal); A60.00 Herpesviral infection of urogenital system, unspecified; F17.210 Nicotine dependence, cigarettes, uncomplicated; Z91.89 Other specified personal risk factors, not elsewhere classified; G47.00 Insomnia, unspecified; Z59.0 Homelessness; Z59.1 Inadequate housing; F32.9 Major depressive disorder, single episode, unspecified; F41.9 Anxiety disorder, unspecified; F13.230 Sedative, hypnotic or anxiolytic dependence with withdrawal, uncomplicated; B19.20 Unspecified viral hepatitis C without hepatic coma; G89.4 Chronic pain syndrome; T14.90XS Injury, unspecified, sequela; V49.9XXS Car occupant (driver) (passenger) injured in unspecified traffic accident, sequela
CPT/HCPCS: 36415; 70030-TC; 80307; 80361; 83690; 83735; 84443; 84703; 85025; 86580; 86592; 86705; 86803; 87340; 87806; G0480

== ENCOUNTER 2017-10-08 17:00 | Inpatient (IN) | payer BC, OTHER ==
[~2017-10-08] VITALS: Ht 160 cm; Wt 60.8 kg
[~2017-10-08 17:00] MED LIST changes: +DIPH50CA37 PO; +HYDR-3895 PO; -TRAZ-144 PO; +TRAZ-182 PO
--- NOTE | 2017-10-08 18:07 | NUR ---
PRE ASSESSMENT: A 27 year old female in intake. She presents disheveled. She is A/O X 4. Her pupils are pinpoint and she presents mildly intoxicated. BP 112/76 P 91 R 16 O2 sat 97%. She reports she was here in July 2017 and went to [place] after. She states she stayed clean and sober for 3 weeks and relapsed the beginning of August. She states she has been using Heroin 2 Gm IV daily x 2 months. Last smoke 1/4 gram 3 hours ago. She also reports taking Xanax 2 mg or Valium 5-10 mg Q 3 days. Last used 3 days ago in the afternoon. Medical Hx includes HSV2,Hepatitis C insomnia and Depression. She takes no meds and brought none to facility. Will be assessed on unit.
[2017-10-08] MEDS ORDERED: DICYCLOMINE HCL 20 MG TABLET PO PRN (19:45)
[2017-10-08] MEDS ORDERED: LORAZEPAM 1 MG TABLET PO PRN (19:45)
[2017-10-08] MEDS ORDERED: LOPERAMIDE HCL 2 MG CAPSULE PO PRN ×2 (19:45)
[2017-10-08] MEDS ORDERED: MAG HYDROX/AL HYDROX/SIMETH 30 ML LIQUID UDC PO PRN (19:45)
[2017-10-08] MEDS ORDERED: BUPRENORPHINE HCL 2 MG TAB.SUBL SL PRN (19:45)
[2017-10-08] MEDS ORDERED: diphenhydrAMINE 50 MG CAPSULE PO PRN (19:45)
[2017-10-08] MEDS ORDERED: MAGNESIUM HYDROXIDE 30 ML LIQUID UDC PO PRN (19:45)
[2017-10-08] MEDS ORDERED: LORAZEPAM 2 MG/1 ML VIAL IM PRN (19:45)
[2017-10-08] MEDS ORDERED: ONDANSETRON ODT 4 MG TAB.RAPDIS SL PRN (19:45)
[2017-10-08] MEDS ORDERED: MIRALAX 17 GM POWD.PACK PO PRN (19:45)
[2017-10-08] MEDS ORDERED: ONDANSETRON 4 MG/2 ML VIAL IM PRN (19:45)
[2017-10-08 19:46] LABS: *AMPHETAMINE, URINE POSITIVE (NEGATIVE); *BARBITURATE, URINE NEGATIVE (NEGATIVE); *CANNABINOID, URINE NEGATIVE (NEGATIVE); *COCCAINE, URINE NEGATIVE (NEGATIVE); *OPIATE, URINE POSITIVE (NEGATIVE); *PHENCYCLIDINE SCREEN,URINE NEGATIVE (NEGATIVE)
[2017-10-08 19:51] LABS: *URINE HCG, QUAL NEGATIVE (NEGATIVE)
[2017-10-08 20:00] VITALS: BP 117/62
--- NOTE | 2017-10-08 20:00 | NUR ---
ADMISSION NOTE Pt arrived ambulatory from [facility] Intake to the third floor at 1634. Pt is a 27 year old female admitted on 10/08/17 for Opiate and Benzodiazepine withdrawal. She is full code with NKA. She reports does not smoke cigarettes, she vapes. She reports a PMHx of anxiety, depression, and history of Hep C. She denies having seizures, SI and HI. She denies having a PCP and denies taking home medications. Pt appears to be disheveled, unkempt with hair uncombed. She is noted to be anxious, worried, restless, irritable, and fidgety and is unable to sit still during interview. She reports I havent taken any benzos and Im still good from the heroin. I wont feel opiate withdrawals until probably later tonight She reports she wants to get sober because, " Im sick and tired of living like this. She reports her longest sobriety was for 79 days in September 2015. She was previously at this facility in July 2017, June 2017, Nov 2015, and September 2015. After her last admission in July, she went to [facility] and was able to remain sober for 3 weeks. She relapsed and has been using for 2.5 months. She states her triggers for relapse are " boredom and money." She states she tried to get sober " at least 10 times and is unsure about what will be different this time around. She reports having legal consequences from using. She is unable to verbalize insight, pt verbalizes motivation to stay sober and states " I plan on going to [facility] in [place] after this for treatment. She states that she does not have a good support system. Her family lives in [place] and her mother and sister are not sober. She currently unemployed and lives with a friend in [place]. She describes her current use as: 1. Heroin 2-2.5 gram IV daily for 2.5 months Last dose: 0.4 gram IV on 10/08/17 in the morning. 2. Xanax 2 mg non-daily for 2.5 months Last dose: 2 mg on 10/05/17 3. Valium 10 mg non-daily Last dose: 10 mg on 10/05/17 She describes her withdrawal symptoms as restless legs, watery eyes, anxiety,restlessness, and agitation Upon assessment, pt is alert and oriented x4, speech is clear, loud and audible. Heart rate regular. Denies chest pain or SOB. PERRLA, pupils are pinpoint, breathing is even and unlabored, lung sounds clear. Abdomen is soft and non-distended. Bowel sounds present in all quadrants, last BM 10/07/17. Pt reports that BM is regular. Pt's skin is warm, dry and intact.Noted with multiple track bolivar on bilateral arms. MD aware of pt's admission. Pt oriented to room and unit. Safety measures in place. Will continue to monitor. Addendum: 10/09/17 at 0715 by ABBIE LINARES RN CLARIFICATION OF ADMISSION TIME Pt arrived on the unit at 1834.
--- NOTE | 2017-10-08 20:01 | NUR ---
COWS/CIWA Pt reports increased anxiety, agitation, restlessness, and sweats. Pt states " I'm so anxious, I can't sit still, I'm worked up about where I'm going after this" CIWA:16. Unable to accurately assess COWS, pt reports she is still intoxicated from Heroin. Will monitor.
--- NOTE | 2017-10-08 20:03 | NUR ---
PRN ATIVAN Pt complains of increased anxiety, agitation, restlessness, and sweats. Pt states " I'm so anxious, I can't sit still, I'm worked up about where I'm going after this" CIWA:16. PRN Ativan 2 mg administered as ordered. Will monitor effectiveness.
--- NOTE | 2017-10-08 21:03 | NUR ---
PRN ATIVAN REASSESSMENT PRN medication is effective. Pt is lying in bed with eyes closed and is noted to be asleep. Breathing is even and unlabored,safety measures in place. Will monitor.
--- NOTE | 2017-10-08 21:30 | NUR ---
REFUSED LABS Pt refused lab draw. Pt agreed to have labs drawn in the AM.
[2017-10-08] MEDS: GABAPENTIN 300 MG CAPSULE PO SCH (21:46)
[2017-10-09] VITALS: BP 95/54
--- NOTE | 2017-10-09 | NUR ---
COWS/CIWA DEFERRED COWS and CIWA deferred d/t pt lying in bed with eyes closed and is noted to be asleep. Breathing is even and unlabored, safety measures in place. Will monitor.
[2017-10-09 04:06] VITALS: BP 99/58
--- NOTE | 2017-10-09 04:08 | NUR ---
COWS/CIWA DEFERRED 0400 COWS and CIWA deferred d/t pt lying in bed with eyes closed and is noted to be asleep. Breathing is even and unlabored, safety measures in place. Will continue to monitor.
--- NOTE | 2017-10-09 07:29 | NUR ---
END OF SHIFT Pt is a 27 year old female admitted on 10/08/17 for Opiate and Benzodiazepine withdrawal. She remains alert and oriented x4. She had complaints of increased anxiety, restlessness and agitation during the shift. She was seen and examined by Dr. Dominique. She is scheduled to start a 5 day Subutex taper today 10/09/17 with PRN Ativan available. At 2002 she received PRN Ativan 2 mg for CIWA:16. Pt refused labs during shift manager but agreed for labs in the AM. She slept a total of 9 hrs, Intake: 500mL, Void: x1, BM:0, CIWA:16 at 1999. Unable to accurately assess COWS d/t pt stated she was still intoxicated from Heroin. Breathing is even and unlabored, safety measures in place. Endorsed to AM shift.
[2017-10-09 08:00] VITALS: BP 90/60
[2017-10-09] MEDS: BUPRENORPHINE HCL 2 MG TAB.SUBL SL SCH ×4 (09:00→21:02)
[2017-10-09] MEDS: GABAPENTIN 300 MG CAPSULE PO SCH ×3 (09:00→21:02)
[2017-10-09] MEDS ORDERED: 5 DAY TAPER BUPRENORPHINE -SERENITY PROTOCOL SL PRN (09:00)
[2017-10-09] MEDS: MULTIVITAMINS,THERAPEUTIC TABLET PO SCH (09:00)
[2017-10-09] MEDS ORDERED: TUBERCULIN,PURIF.PROT.DERIV. 5 TU/0.1 ML TEST ID ONE (09:00)
--- NOTE | 2017-10-09 09:15 | NUR ---
START OF SHIFT: Received Pt is sleeping with respirations even and unlabored. Easily aroused. She states" please let me sleep for a while,I am exhausted". Will allow Pt to sleep ore before medication time. Call kang in reach. Bed locked and low.
--- NOTE | 2017-10-09 09:45 | NUR ---
Pt eating breakfast sitting up in bed. She reports she does not want the Subutex yet as she doesn't feel sick enough yet. She is disheveled and presents with irritable mood and congruent affect. Mild body aches and anxiety reported. COWS 10. Induction dose held.Subutex taper ordered to manage s/s of w/d. She refused PPD and Vitamins and states that she will probably need the next dose. Educated pt on medications. She expressed verbal understanding of education. Will continue to monitor and manage s/s of w/d.
--- NOTE | 2017-10-09 11:00 | NUR ---
UNSUCCESSFUL LAB DRAW BY ELECTRICAL CONSTRUCTION PROJECT MANAGER FRANCISCO, 1 ST ATTEMPT WAS DONE IN LAB AND BUTTERFLY NEEDLE WAS UNSUCCESSFUL, FRANCISCO THEN SAID SHE WILL USE A DIFFERENT NEEDLE AND MEET PT IN HER ROOM, 2ND ATTEMPT WAS UNSUCCESSFUL. WILL ATTEMPT AT A LATER TIME
[2017-10-09 12:00] VITALS: BP 90/60
[2017-10-09] MEDS: LORAZEPAM 1 MG TABLET PO PRN ×2 (12:36→16:37)
--- NOTE | 2017-10-09 12:40 | NUR ---
Induction dose of Subutex administered as ordered. COWS 17. She reports anxiety, sweats,chills,body aches,fatigue ,restlessness and irritability. She continues to present with anxious mood and congruent affect. PRN Ativan also administered for CIWA 11 Will monitor effectiveness of PRN med. Will continue to monitor and manage s/s of w/d.
[2017-10-09] MEDS: HYDROXYZINE PAMOATE 25 MG CAPSULE PO PRN (14:57)
--- NOTE | 2017-10-09 15:00 | NUR ---
PRN Vistaril 25 mg PO given to assist with reported anxiety. Will monitor effectiveness of PRN.
--- NOTE | 2017-10-09 15:55 | NUR ---
Pt states the Vistaril PRN was not effective and she still feels anxious. Will reassess CIWA and continue to manage s/s of w/d.
[2017-10-09 16:00] VITALS: BP 101/60
--- NOTE | 2017-10-09 16:15 | NUR ---
Will give PRN Ativan 1 mg PO given for CIWA 14 She reports anxiety,restlessness,skin crawling and irritability.
[2017-10-09] MEDS: IBUPROFEN 600 MG TABLET PO PRN (16:37)
[2017-10-09] MEDS: METHOCARBAMOL 750 MG TABLET PO PRN (16:37)
--- NOTE | 2017-10-09 17:15 | NUR ---
Pt states the PRN Ativan was effective. CIWA 9.
--- NOTE | 2017-10-09 18:43 | NUR ---
END OF SHIFT: Pt started Subutex taper today. She c/o anxiety,sweats ,chills, body aches and restless legs.Last COWS 13 CIWA 9. She was given Ativan 1 mg PO PRN x 2 and effective. She was also given Vistaril 25 mg PO which was ineffective. She slept on and off most of shift with very little interaction with peers.AM meds hels as she was refusing. PPD refused. Will pass shift report to oncoming night nurse.
--- NOTE | 2017-10-09 19:30 | NUR ---
START OF SHIFT Received 27 year old female patient admitted on 10/08/17 for Opiate and Benzodiazepine withdrawal. Pt is alert and oriented x4. She complains of restless legs, body aches, chills, and sweats. Pt appears to be disheveled with dirty fingernails and uncombed hair. She started her 5 day Subutex taper today 10/08/17 at 12pm. She also continues on PRN Ativan. Per endorsement, she received PRN Vistaril , and PRN Ativan 1 mg. Last COWS: 13, CIWA: 9 at 1600. Breathing is even and unlabored, safety measures in place. Will monitor.
[2017-10-09 20:00] VITALS: BP 90/60
--- NOTE | 2017-10-09 20:00 | NUR ---
COWS/CIWA Pt complains of restless legs, body aches, chills, sweats, irritability, anxiety, and agitation. COWS:14, CIWA: 12 prior to 2100 medication administration. Will monitor.
[2017-10-09] MEDS: TRAZODONE 50 MG TABLET PO PRN (23:49)
--- NOTE | 2017-10-09 23:49 | NUR ---
PRN TRAZODONE Pt complains of difficulty sleeping. PRN Trazodone administered as ordered. Safety measures in place. Will monitor effectiveness.
[2017-10-10] VITALS: BP 96/73
[2017-10-10] MEDS ORDERED: LORAZEPAM 1 MG TABLET PO ONE
--- NOTE | 2017-10-10 | NUR ---
COWS/CIWA Pt complains of restless legs, anxiety, agitation, sweats, chills, and irritability. Pt appears to be uncomfortable and stated " I'm so restless." COWS:14, CIWA:16.
--- NOTE | 2017-10-10 00:14 | NUR ---
ONE TIME ATIVAN Pt complains of restless legs, anxiety, agitation,and sweats. CIWA:16. One time Ativan 2 mg administered as ordered. Will monitor effectiveness.
--- NOTE | 2017-10-10 00:49 | NUR ---
PRN TRAZODONE REASSESSMENT PRN medication effective. Pt is lying in bed with eyes closed and is noted to be asleep. Breathing is even and unlabored, safety measures in place. Will monitor.
--- NOTE | 2017-10-10 01:14 | NUR ---
ONE TIME ATIVAN REASSESSMENT Medication effective. Pt is lying in bed with eyes closed and is asleep. No facial grimacing noted. Breathing is even and unlabored, safety measures in place. Will monitor.
--- NOTE | 2017-10-10 04:00 | NUR ---
VITALS REFUSED, COWS/CIWA DEFERRED Pt refused 0400 vitals at beginning of shift. Pt stated " It's hard for me to go back to sleep! If I'm sleeping dont wake me up." COWS/CIWA deferred d/t pt lying in bed with eyes closed and is noted to be asleep Breathing even and unlabored, Safety measures in place. Will monitor.
--- NOTE | 2017-10-10 07:05 | NUR ---
END OF SHIFT Pt is a 27 year old female patient admitted on 10/08/17 for Opiate and Benzodiazepine withdrawal. Pt remains alert and oriented x4. She complained of anxiety, agitation, restlessness, restless legs, body aches, chills, and sweats during the shift. She continues on a 5 day Subutex taper and is tolerating well. At 2349 she received PRN Trazodone. At 0014 she received a one time Ativan 2 mg for increased CIWA:16. She slept for a total of 10 hrs, Intake: 296mL, Void: x1, BM:0, Last COWS: 14, CIWA: 16 at 0000. Breathing is even and unlabored, safety measures in place. Will endorse to AM shift.
--- NOTE | 2017-10-10 07:40 | NUR ---
START OF SHIFT Rcvd endorse from ongoing nurse, client is in bed, sound asleep, easy to arouse, RR 16, even, non-labored. Client is lying on her left side, in a position, clammy skin and goosebump noted on upper extremities. No blood drawn yet, client is a hard stick. PRN Ativan 2mg PO for CIWA 16,Trazodone 50mg PO for inability to sleep, client slept 10 hrs. Seizure precautions in place. Bed in lowest/locked position. Call light within reach.
[2017-10-10 09:00] VITALS: BP 102/61
[2017-10-10] MEDS: ACETAMINOPHEN 325 MG TABLET PO PRN (09:25)
[2017-10-10] MEDS: BUPRENORPHINE HCL 2 MG TAB.SUBL SL SCH ×3 (09:25→21:16)
[2017-10-10] MEDS: HYDROXYZINE PAMOATE 25 MG CAPSULE PO PRN (09:25)
[2017-10-10] MEDS: CLONIDINE HCL 0.1 MG TABLET PO PRN ×2 (09:25→21:29)
[2017-10-10] MEDS: IBUPROFEN 600 MG TABLET PO PRN (09:25)
[2017-10-10] MEDS: METHOCARBAMOL 750 MG TABLET PO PRN (09:25)
[2017-10-10] MEDS: MULTIVITAMINS,THERAPEUTIC TABLET PO SCH (09:25)
[2017-10-10] MEDS: GABAPENTIN 300 MG CAPSULE PO SCH ×3 (09:25→21:16)
--- NOTE | 2017-10-10 09:25 | NUR ---
CIWA 14 / COWS 14 Client presents with anxious, irritable mood, flat affect, she appears fearful, jittery, tremors, sweats, and difficulty concentrating. Client reports feeling very anxious, irritable, nauseous, stomach cramps, shaking, poor appetite, restless legs, generalized body aches , and fatigue. Schedule Subutex 4mg PO and Gabapentin 300mg PO, PRN Clonidine 0.1mg PO for agitation, Motrin 600mg PO and Tylenol 650mg PO for generalized body aches 10/17, Robaxin 750mg PO for myalgia on lower extremities, Vistaril 25mg PO for anxiety administered. Will continue to monitor.
--- NOTE | 2017-10-10 10:25 | NUR ---
Reassess PRN Clonidine 0.1mg, Motrin 600mg, Tylenol 650mg, Robaxin 750mg, Vistaril 25mg PO for anxiety. She continues to present with agitated mood, generalized body aches 3/10, but tolerable, slight relief from myalgia, client reports feeling no better from her anxiety. Will continue to monitor.
[2017-10-10 12:00] VITALS: BP 90/52
--- NOTE | 2017-10-10 12:00 | NUR ---
CIWA / 12 Client noted with anxious mood, agitated, flat affect, fearful, tremors, sweats, and difficulty concentrating. Supportive, non-pharmacologic therapy and close monitoring rendered. Call light within reach.
--- NOTE | 2017-10-10 15:50 | NUR ---
Nursing note Client has been compliant with blood drawn orders. Multiple attempts by body line finisher done without success. notified.
[2017-10-10 16:01] VITALS: BP 104/61
--- NOTE | 2017-10-10 16:02 | NUR ---
CIWA / 14 Client presents with anxious, irritable mood, flat affect, she appears fearful, jittery, tremors, sweats, and difficulty concentrating. Client reports feeling very anxious, irritable, nauseous, stomach cramps, shaking, poor appetite, restless legs, and fatigue. Schedule Subutex 4mg PO and Gabapentin 300mg PO administered. Will continue to monitor.
--- NOTE | 2017-10-10 19:20 | NUR ---
END OF SHIFT Endorse to client to incoming nurse, client is a/o x 4, she continues to present with anxious, irritable mood, flat affect, tremors, clammy skin, stomach cramps, headache, decreased appetite, restless legs, and fatigue. PRN medication administered for above withdrawal symptoms. Last CIWA @ 1600. Adequate PO fluid intake, 2000mL, void x 3. Seizure precautions rendered. Call light within reach.
--- NOTE | 2017-10-10 19:30 | NUR ---
Start of Shift Endorsement received from day nurse. Pt admitted 10/08/17 for medically managed withdrawal from Heroin, Xanax and Valium. Patient on day 2 of a 5 day Subutex taper, listed as a full code with NKAs and on a regular diet. Pt presents as angry and emotionally labile. Found sleeping, arousable to voice and touch, says anxiety is her problem right now. Pt denies significant pain or discomfort, no HI/SI, no A/V/T hallucinations. Pt presents with flat, blunted affect, anxious, avoidant eye contact, irritable with cursing, emotionally labile. Room is disheveled with empty food and drink container, clothes strewn on chairs and floor. Pt is disheveled with uncombed hair, dirty fingernails and poor dental hygiene. Pt educated about w/d s/sxs and disease process. Will continue to monitor pt for duration of shift promptly attending to all s/sxs w/d or distress.
[2017-10-10 20:00] VITALS: BP 97/54
--- NOTE | 2017-10-10 20:00 | NUR ---
Evening Rounds COWS 13, CIWA 10, aeb anxiety and agitation, restlessness, anhedonia, diaphoresis, depression, hypervigilance, emotional volatility and increased emotional amplitude, fatigue/malaise, nasal congestion and yawning.
[2017-10-10] MEDS: TRAZODONE 50 MG TABLET PO PRN (21:28)
--- NOTE | 2017-10-10 21:30 | NUR ---
PRN Meds Trazodone 50mg PO for insomnia and Clonidine 0.1mg PO for anxiety, diaphoresis given. Will continue to monitor and reassess in 1 hour
--- NOTE | 2017-10-10 22:30 | NUR ---
PRN Reassessment Trazodone 50mg PO for insomnia and Clonidine 0.1mg PO for anxiety and diaphoresis given 1 hour earlier. At present pt is sleeping. RR 16, even and nonlabored. Meds effective.
[2017-10-11] VITALS: BP 86/48
--- NOTE | 2017-10-11 | NUR ---
Midnight Rounds VS's obtained and stable. COWS deferred r/t pt somnalence. Will continue to monitor and promptly attend to all s/sx's w/d or distress.
[2017-10-11 04:00] VITALS: BP 82/38
--- NOTE | 2017-10-11 04:00 | NUR ---
0400 Rounds VS's obtained and stable, pt remains hypotensive. COWS deferred r/t pt somnalence. Will continue to monitor and promptly attend to all s/sx's w/d or distress.
--- NOTE | 2017-10-11 07:01 | NUR ---
End of Shift Endorsement given to day nurse. Pt admitted 10/08/17 for medically managed withdrawal from Heroin, Xanax and Valium. Patient starting day 3 of a 5 day Subutex taper, listed as a full code with NKAs and on a regular diet. PRNs for shift included Clonidine and Trazodone. Pt slept for 11 hours and had 1296 mls intake, with 2 voids. Pt affect flat, emotionally volatile with cursing and crying, hypervigilant. Pt objecting to am attempt for blood draw with MD order to draw from lower extremities. Room remains disheveled with clothing stewn on furniture and floor, empty food and drink containers in room. Pt starting day 3 of 5 day Subutex taper .
--- NOTE | 2017-10-11 07:20 | NUR ---
Start Of Shift: Patient is a 27 yr old female who was admitted to [facility] on 10/08/17 for a medically supervised withdrawal from Opiates ( Heroin IV) and benzodiazepines ( Xanax and Valium PO ), she is awake in the hallway at this time complaining that lab cannot draw her blood as they cannot find a vein, orders were given by MD for lab to draw on lower extremities, will follow up. She is on day 3 of a 5 day Subutex taper. PRN medications given on PM shift : Clonidine and Trazodone, she slept for 11 hours and last COWS 13 and CIWA 10. Continue to follow MD plan of care and offer support as needed.
[2017-10-11 08:00] VITALS: BP 92/58
--- NOTE | 2017-10-11 08:30 | NUR ---
COWS 11/ CIWA 11 Patients withdrawal symptoms include increased anxiety, restlessness, decreased appetite, irritability and muscle aches. Scheduled detox medications given and no PRN medication requested.
[2017-10-11] MEDS: MULTIVITAMINS,THERAPEUTIC TABLET PO SCH (08:38)
[2017-10-11] MEDS: GABAPENTIN 300 MG CAPSULE PO SCH ×3 (08:38→21:14)
[2017-10-11] MEDS ORDERED: BUPRENORPHINE HCL 2 MG TAB.SUBL SL SCH (09:00)
[2017-10-11 12:00] VITALS: BP 83/43
[2017-10-11] MEDS: HYDROXYZINE PAMOATE 25 MG CAPSULE PO PRN (12:10)
--- NOTE | 2017-10-11 12:10 | NUR ---
PRN Vistaril Vistaril 25 MG PO given for increased anxiety , HR 104. Patient lying on bed watching TV and states she feels her heart racing. will continue to monitor.
--- NOTE | 2017-10-11 12:10 | NUR ---
COWS 10/ CIWA 12 Patients withdrawal symptoms include increased heart rate ( 104), restlessness, lethargy, decreased appetite and difficulty concentrating. Vistaril 25 MG PO given, will reassess
--- NOTE | 2017-10-11 13:10 | NUR ---
PRN Reassess Patient is lying in bed with eyes closed, breathing even and unlabored.
[2017-10-11] MEDS: BUPRENORPHINE HCL 2 MG TAB.SUBL SL SCH ×2 (14:31→21:14)
[2017-10-11 16:00] VITALS: BP 98/62
--- NOTE | 2017-10-11 16:00 | NUR ---
COWS 9/ CIWA 12 Patient presents with increased anxiety and agitation, decreased appetite, depressed mood and flat affect. No PRN medications were required or requested but were offered. Patient was redirected to group therapy and also client activities.
--- NOTE | 2017-10-11 18:56 | NUR ---
End Of Shift : Patient is a 27 yr old female who was admitted to [facility] on 10/08/17 for a medically supervised withdrawal from Opiates ( heroin), she has been placed on a 5 day Subutex taper and this is day 3. PRN Vistaril was given for increased anxiety and tachycardia with positive effects. She has been compliant with afternoon group therapy and activities and is interacting with her peers. Her withdrawal symptoms have included irritability, anxiety, restlessness, decreased appetite and a depressed flat affect. She had a fluid intake of 2400 ML, 4Voids and 0BM, her last COWS was 9 and CIWA 12 @ 1600. Continue to follow MD plan of care and offer support as needed. Endorsed to shift lab technician.
--- NOTE | 2017-10-11 19:30 | NUR ---
START OF SHIFT Pt is a 27 y/o female admitted on 10/08/17 for opiate withdrawal. Pt is on a 5 day Subutex taper, tolerating well. Last COWS 9 and CIWA 12 and PRN Vistaril administered during day shift. Upon assessment pt presents with anxiety, agitation, restlessness, difficulty falling and staying asleep, body aches, sweats, flushed skin, yawning, malaise, fatigue, slumped posture, leg discomfort, frequent nocturnal awakenings, increased HR, disheveled appearance, and unkempt room. Medications due. Safety measures in place. Call light within reach. Will continue to monitor.
[2017-10-11 20:00] VITALS: BP 103/60
--- NOTE | 2017-10-11 20:00 | NUR ---
COWS 10 AND CIWA 12 Pt presents with anxiety, agitation, restlessness, difficulty falling and staying asleep, body aches, sweats, flushed skin, yawning, malaise, fatigue, slumped posture, leg discomfort, frequent nocturnal awakenings, increased HR, disheveled appearance, and unkempt room.
[2017-10-11] MEDS: METHOCARBAMOL 750 MG TABLET PO PRN (21:13)
--- NOTE | 2017-10-11 21:13 | NUR ---
PRN ROBAXIN ADMINISTRATION Pt. c/o body aches 08/17. Safety measures in place. Call light within reach. Will continue to monitor.
--- NOTE | 2017-10-11 22:13 | NUR ---
PRN DANA REASSESSMENT Pt. laying in bed with eyes closed, medication noted effective. Safety measures in place. Call light within reach. Will continue to monitor.
--- NOTE | 2017-10-12 | NUR ---
COWS/CIWA DEFERRED AND V/S REFUSED Pt. laying in bed with eyes closed, COWS/CIWA deferred, to be assessed when pt. is awake per orders. V/S refused. Respirations even and unlabored. Safety measures in place. Call light within reach. Will continue to monitor.
--- NOTE | 2017-10-12 07:30 | NUR ---
Start of Shift: patient is a 27 yr old female who was admitted to [facility] on 10/08/17 for a medically supervised withdrawal from Opiates ( heroin IV), she is on a 5 day Subutex taper and this is day 4. PRN medications given last night : Robaxin for myalgia, she slept for 9 hours intermittently and last COWS 10 and CIWA 12. She is awake in bed at this time and voices no concerns. Continue to follow MD plan of care and offer support as needed.
--- NOTE | 2017-10-12 07:30 | NUR ---
END OF SHIFT Pt is a 27 y/o female admitted on 10/08/17 for opiate withdrawal. Pt is on a 5 day Subutex taper, tolerating well. Pt. presented with anxiety, agitation, restlessness, difficulty falling and staying asleep, body aches, sweats, flushed skin, yawning, malaise, fatigue, slumped posture, leg discomfort, frequent nocturnal awakenings, increased HR, disheveled appearance, and unkempt room. Scheduled medications and PRN Robaxin administered, effective in s/s of withdrawal as verbalized by patient. Last COWS 10 and CIWA 12. Pt. slept 9 hrs. Intake 592 mls, void x 1, stool x 0. Safety measures in place. Call light within reach. Pt. needs have been met. Endorsed to day shift nurse.
[2017-10-12 08:00] VITALS: BP 76/37
--- NOTE | 2017-10-12 08:30 | NUR ---
COWS 9/ CIWA 11 Withdrawal symptoms present as insomnia, restlessness, decreased appetite, stuffy nose, anxiety and irritability. Scheduled AM medications given, no PRN medications requested tho offered.
[2017-10-12] MEDS: MULTIVITAMINS,THERAPEUTIC TABLET PO SCH (08:34)
[2017-10-12] MEDS: BUPRENORPHINE HCL 2 MG TAB.SUBL SL SCH ×3 (08:35→21:21)
[2017-10-12] MEDS: GABAPENTIN 300 MG CAPSULE PO SCH ×3 (08:35→21:21)
[2017-10-12 12:00] VITALS: BP 115/50
--- NOTE | 2017-10-12 12:00 | NUR ---
COWS 9 CIWA 11 Withdrawal symptoms present as insomnia, restlessness, decreased appetite, stuffy nose, anxiety and irritability. No PRN medications requested though offered.
[2017-10-12] MEDS: METHOCARBAMOL 750 MG TABLET PO PRN (14:06)
[2017-10-12] MEDS: IBUPROFEN 600 MG TABLET PO PRN (14:06)
[2017-10-12] MEDS: ACETAMINOPHEN 325 MG TABLET PO PRN (14:06)
--- NOTE | 2017-10-12 14:06 | NUR ---
PRN Medication Robaxin 750 MG PO, Motrin 600 MG PO, Tylenol 650 MG PO given for complaints of generalized muscle aches/myalgia will reassess
--- NOTE | 2017-10-12 15:06 | NUR ---
PRN Reassess Motrin, Tylenol and Robaxin effective, pain level has now decreased from 7/10 to 3/10 will continue to monitor
--- NOTE | 2017-10-12 15:15 | NUR ---
LAB able to draw blood
[2017-10-12 15:17] LABS: BASOPHILS # (AUTO) 0.1 K/uL (0.0-8.0); BASOPHILS % (AUTO) 0.8 % (0.0-2.0); EOSINOPHILS # (AUTO) 0.3 K/uL (0.0-0.7); EOSINOPHILS % (AUTO) 3.9 % (0.0-7.0); HEMATOCRIT 48.5 % (31.2-41.9); HEMOGLOBIN 16.5 g/dL (10.9-14.3); LYMPHOCYTES # (AUTO) 2.7 K/uL (20.0-40.0); LYMPHOCYTES % (AUTO) 38.6 % (20.5-51.5); MEAN CORPUSCULAR HEMOGLOBIN 28.6 uug (24.7-32.8); MEAN CORPUSCULAR HGB CONC 34 g/dL (32.3-35.6); MONOCYTES # (AUTO) 0.5 K/uL (2.0-10.0); MONOCYTES % (AUTO) 6.5 % (0.0-11.0); NEUTROPHILS # (AUTO) 3.5 K/uL (1.8-8.9); NEUTROPHILS % (AUTO) 50.2 % (38.5-71.5); PLATELET COUNT (AUTO) 283 K/uL (179-408); RED BLOOD CELL COUNT(AUTO) 5.78 MIL/uL (3.63-4.92)
--- NOTE | 2017-10-12 15:31 | NUR ---
Client was prompted to attend twice daily group therapy sessions.
[2017-10-12 15:36] LABS: BILIRUBIN,TOTAL 0.9 mg/dL (0.2-1.0); CREATININE 0.7 mg/dL (0.6-1.3); MAGNESIUM 2.2 mg/dL (1.8-2.4); POTASSIUM 4.4 mmol/L (3.5-5.1); TOTAL PROTEIN, SERUM 9.4 g/dL (6.4-8.2)
[2017-10-12 16:00] VITALS: BP 121/63
--- NOTE | 2017-10-12 16:00 | NUR ---
COWS 10 CIWA 11 Withdrawal symptoms present as insomnia, restlessness, decreased appetite, stuffy nose, anxiety and irritability and generalized body aches, Motrin 600mg PO, Tylenol 650 MG PO and Robaxin 650mg PO given as PRN's with positive effects.
--- NOTE | 2017-10-12 18:57 | NUR ---
End Of Shift : Patient is a 27 yr old female who was admitted to [facility] on 10/08/17 for a medically supervised withdrawal from Opiates ( heroin), she has been placed on a 5 day Subutex taper and this is day 4. PRN Robaxin, Motrin and Tylenol were given for generalized body aches with positive effects. Her withdrawal symptoms have included irritability, anxiety, restlessness, decreased appetite, generalized body aches and a depressed flat affect. Lab was finally able to draw blood this afternoon due to being a very hard stick.. She had a fluid intake of 1000 ML, 2 Voids and 0 BM, her last COWS was 10 and CIWA 11@ 1600. Continue to follow MD plan of care and offer support as needed. Endorsed to night time babysitter.
--- NOTE | 2017-10-12 19:30 | NUR ---
Start of Shift Endorsement received from day RN. Pt admitted 10/08/17 for medically managed withdrawal from Xanax, Valium, and Heroin. Pt is listed as a full code, NKA's and on a regular diet. Pt on day 4 of a 5 day Subutex taper. Blood reported drawn during day shift. Pt presents with flat affect, poor eye contact, increased emotional amplitude. W/D symptoms observed and reported include depression, anhedonia, generalized B/A's and arthralgias, dyspepsia, anxiety/restlessness and irritability, diaphoresis, fatigue/malaise. COWS/CIWA reported from day shift 12/18. Will continue to monitor pt for duration of shift and promptly attend to all s/sx's w/d or distress.
[2017-10-12 20:00] VITALS: BP 111/65
--- NOTE | 2017-10-12 20:00 | NUR ---
Evening Rounds COWS 10/CIWA 11, AEB anxiety and agitation/restlessness, anhedonia, diaphoresis, depression, difficulty concentrating and sleeping, fatigue and malaise, generalized discomfort, and increased emotional amplitude.
--- NOTE | 2017-10-12 20:27 | NUR ---
PRN Meds Trazodone 100mg PO for insomnia, and Clonidine 0.1mg PO for anxiety/diaphoresis given, will continue to monitor and reasses in 1 hour.
[2017-10-12] MEDS: TRAZODONE 50 MG TABLET PO PRN (21:22)
[2017-10-12] MEDS: CLONIDINE HCL 0.1 MG TABLET PO PRN (21:23)
--- NOTE | 2017-10-12 21:27 | NUR ---
PRN Reassessment Trazodone 100mg PO for insomnia, and Clonidine 0.1mg PO for anxiety/diaphoresis given 1 hour prior. At present pt is sleeping, RR 14, even and nonlabored. Meds effective
--- NOTE | 2017-10-12 22:00 | NUR ---
Evening Rounds CIWA 13, aeb diaphoresis, anxiety/agitation, H/A, dyspepsia, anhedonia, depression, difficulty sleeping, fatigue and malaise, generalized discomfort and nasal congestion. Addendum: 10/12/17 at 2215 by LORIE VELIZ RN error-posted on incorrect patient
[2017-10-13] VITALS: BP 94/54
--- NOTE | 2017-10-13 | NUR ---
Midnight Rounds VS's obtained and stable, COWS and CIWA deferred r/t pt somnalence. Will continue to monitor and promptly attend to all s/sx's w/d or distress.
--- NOTE | 2017-10-13 04:00 | NUR ---
0400 Rounds VS's refused, COWS and CIWA deferred r/t pt refusal/somnalance. Will continue to monitor and promptly attend to all s/sx's w/d or distress
--- NOTE | 2017-10-13 07:10 | NUR ---
End of Shift Endorsement given to day nurse. Pt admitted 10/08/17 for medically managed withdrawal from Xanax, Valium, and Heroin. Pt is listed as a full code, NKA's and on a regular diet. Pt on day 5 of a 5 day Subutex taper. Last COWS was 10, CIWA 11 at 2000 hours, pt refusing 0400 VS's and COWS/CIWA scoring. PRN's for shift included Clonidine for anxiety and diaphoresis, Trazodone for sleep. Pt slept for 7 hours with 500mls intake and 3 voids. Pt irritable and depressed, disheveled with uncombed hair and poor dental hygiene. Room has empty and partially full drink and food containers scattered about, clothes on floor and furniture, encouragement required to straighten room and dispose of trash. Food hoarding occurring. Full safety precautions remain in place, with bed in lowest position, locked and siderails up x 2, HOB at 45 degrees, call kang within reach, and frequent rounding.
--- NOTE | 2017-10-13 07:46 | NUR ---
Start of Shift Patient is a 27 yr old female who was admitted to [facility] on 10/08/17 for a medically supervised withdrawal from Opiates ( heroin ), she has been placed on a 5 day Subutex taper and today is day 5. PRN medications given on PM shift : Clonidine and Trazodone, she slept for 7 + hours and last COWS 10 and CIWA 11. She is asleep in bed at this time, breathing even and unlabored, side rails up x2, call light within reach. Continue to follow MD plan of care and offer support as needed.
[2017-10-13 08:00] VITALS: BP 91/36
--- NOTE | 2017-10-13 08:00 | NUR ---
COWS 9/ CIWA 10 patient presents with aching joints, increased anxiety, irritability, lethargy, restlessness and stuffy nose. Schedule AM meds given, no PRN's required or requested.
[2017-10-13] MEDS: MULTIVITAMINS,THERAPEUTIC TABLET PO SCH (08:45)
[2017-10-13] MEDS: GABAPENTIN 300 MG CAPSULE PO SCH ×3 (08:45→21:13)
[2017-10-13] MEDS ORDERED: BUPRENORPHINE HCL 2 MG TAB.SUBL SL SCH (09:00)
[2017-10-13 12:00] VITALS: BP 93/47
--- NOTE | 2017-10-13 12:00 | NUR ---
COWS 9/CIWA 10 Withdrawal symptoms present as fidgeting, restlessness, lethargy, difficulty concentrating and emotional volatility.
[2017-10-13 16:00] VITALS: BP 103/56
--- NOTE | 2017-10-13 16:00 | NUR ---
COWS 8/CIWA 10 Withdrawal symptoms present as fidgeting, restlessness, lethargy, difficulty concentrating and emotional volatility.
[2017-10-13] MEDS ORDERED: IBUP-1955 PO (16:06)
[2017-10-13] MEDS ORDERED: TRAZ-213 PO (16:06)
[2017-10-13] MEDS ORDERED: METH-406 PO (16:06)
[2017-10-13] MEDS ORDERED: HYDR-3895 PO (16:06)
[2017-10-13] MEDS ORDERED: GABA-534 PO ×2 (16:06)
[2017-10-13] MEDS ORDERED: CLON0.1T14 PO (16:06)
--- NOTE | 2017-10-13 18:53 | NUR ---
End Of Shift: Patient is a 27 yr old female who was admitted to [facility] on 10/08/17 for a medically supervised withdrawal from Opiates ( heroin), she has completed a 5 day Subutex taper and will be discharged in the AM to [facility]. Her withdrawal symptoms have included irritability, anxiety, restlessness, generalized body aches and a depressed flat affect. She had a fluid intake of 1100 ML, 2 Voids and 0 BM, her last COWS was 8 and CIWA 10@ 1600. Continue to follow MD plan of care and offer support as needed. Endorsed to material handler 2nd shift.
--- NOTE | 2017-10-13 19:30 | NUR ---
Start of Shift Endorsement received from day nurse. Pt admitted 10/08/17 for medically managed withdrawal from Xanax, Valium and Heroin. Pt is listed as a full code, with NKA's and on a regular diet. Pt is to be d/c'd to [facility] in a.m. Pt seems anxious about transfer in am, say "I probably won't be able to sleep at all tonight". Pt also restless, with racing thoughts, eye contact improved from prior shifts with this nurse. No c/o pain, last COWS/CIWA from day shift 10/17. Pt encourage to clean room, still littered with food and drink containers, pt hoarding food. Will continue to monitor pt for duration of shift, promptly attending to all s/sx's of w/d or distress.
[2017-10-13 20:00] VITALS: BP 106/54
--- NOTE | 2017-10-13 20:00 | NUR ---
Evening Rounds COWS 8, CIWA 10, aeb fine tremors, anxiety and agitation, sweats and chills, anhedonia, depression, difficulty concentrating and sleeping/insomnia, fatigue and malaise, increased emotional amplitude.
[2017-10-13] MEDS: CLONIDINE HCL 0.1 MG TABLET PO PRN (21:14)
[2017-10-13] MEDS: TRAZODONE 50 MG TABLET PO PRN (21:14)
--- NOTE | 2017-10-13 21:14 | NUR ---
PRN Meds Clonidine 0.1mg PO for diaphoresis/anxiety, and Trazodone 100mg PO for sleep given. Will continue to monitor and reassess in 1 hour.
--- NOTE | 2017-10-13 22:14 | NUR ---
PRN Reassessment Clonidine 0.1mg PO for diaphoresis/anxiety, and Trazodone 100mg PO for sleep given 1 hour prior. At present pt is sleeping, RR 14, even and nonlabored. Meds effective.
[2017-10-14] VITALS: BP 104/59
--- NOTE | 2017-10-14 | NUR ---
Midnight Rounds VS's obtained/stable. COWS/CIWA deferred r/t pt somnalence. Will continue to monitor and promptly attend to all s/sx's w/d or distress.
[2017-10-14 04:00] VITALS: BP 83/41
--- NOTE | 2017-10-14 07:35 | NUR ---
End of Shift Endorsement given to day nurse. Pt admitted 10/08/17 for medically managed withdrawal from Xanax, Valium and Heroin. Pt is listed as a full code, with NKA's and on a regular diet. [facility] Pt seems anxious about transfer but accepting of change. W/D symptoms exhibited overnight were anxiety and restlessness, agitation fine tremors, chills/diaphoresis, yawning, anhedonia. PRN's for shift included Trazodone and Clonidine. Pt slept for 8 hours with 1000mls intake and 3 voids.
--- NOTE | 2017-10-14 07:40 | NUR ---
START OF SHIFT NOTE Received report from night nurse, 27 year old female admitted for Xanax, Valium, Heroin withdrawal. Patient completed her Subutex taper tolerated well. Per endorsement patient received PRN Clonidine, Trazodone effective per night nurse, Last CIWA -10, COWS-8, slept for 8 hours. Received patient alert awake flat facial expression, anxious, agitated, restless noted. Patient set for discharge today at 0800 to [facility]. Educated patient regarding the importance of being compliant with rehab, medications and treatment program Patient verbalized understanding. All safety measures in place, Call light within reach. Will cont to monitor.
[2017-10-14 08:00] VITALS: BP 99/58
--- NOTE | 2017-10-14 08:35 | NUR ---
DISCHARGE NOTE Patient discharge from [facility] in stable condition. Patient completed her Subutex taper tolerated well. Vital signs WNL. Patient denies nay SI/HI. All discharge paper work completed signed and dated. All personal belongings returned to the patient including prescription. Patient, patient did not bring any medications from home. Patient discharge from [facility] to the [facility] on 10/14/17 at 0835. notified.
[2017-10-14 13:11] LABS: HEPATITIS B SURFACE AG Negative (Negative)
== END 2017-10-14 08:35 | disposition other institution (70) | DRG 895 ==
LOC: SRC 17:45
PROVIDERS: ADMIT Family Medicine Addiction Medicine; ATTEND Family Medicine Addiction Medicine
PROC: HZ2ZZZZ Detoxification Services for Substance Abuse Treatment (ICD-10-PCS; principal; 2017-10-08)
PROC: HZ41ZZZ Group Counseling for Substance Abuse Treatment, Behavioral (ICD-10-PCS; 2017-10-11)
DX: F11.23 Opioid dependence with withdrawal (principal); Z59.0 Homelessness; F17.210 Nicotine dependence, cigarettes, uncomplicated; F41.9 Anxiety disorder, unspecified; G89.4 Chronic pain syndrome; G47.00 Insomnia, unspecified; Z91.89 Other specified personal risk factors, not elsewhere classified; Z59.1 Inadequate housing; F32.9 Major depressive disorder, single episode, unspecified; A60.00 Herpesviral infection of urogenital system, unspecified; B19.20 Unspecified viral hepatitis C without hepatic coma; F13.239 Sedative, hypnotic or anxiolytic dependence with withdrawal, unspecified
CPT/HCPCS: 36415; 70030-TC; 80307; 80324; 80361; 83690; 83735; 84703; 85025; 86592; 86705; 86803; 87340; 87806